=== PATIENT | female | born 1990 | race Caucasian/White ===

== ENCOUNTER → 2019-05-01 15:06 | Observation (INO) ==
[2019-05-01 13:31] LABS: Basophils % 0.2 %; Eosinophils # 0.2 K/mcL (0.0-0.6); Eosinophils % 2.2 %; Hematocrit 33.5 % (35.3-44.9); Hemoglobin 11.3 g/dL (11.5-15.4); Immature Granulocytes % 0.5 % (0-4); Lymphocytes # 2.4 K/mcL (0.6-4.6); Lymphocytes % 24.7 %; Mean Corpuscular HGB Conc 33.7 g/dL (31.6-35.5); Mean Corpuscular Hemoglobin 30.7 pg (28.0-33.3); Mean Platelet Volume 10.9 fL (9.4-12.4); Monocytes # 0.8 K/mcL (0.0-1.3); Monocytes % 8.2 %; Neutrophils # 6.2 K/mcL (1.6-8.9); Platelet Count 230 K/mcL (140-400); Red Blood Count 3.68 M/mcL (3.82-4.97); Red Cell Distribution Width 13.4 % (11.5-14.5); Segmented Neutrophils % 64.2 %; White Blood Count 9.7 K/mcL (4.3-11.1)
[2019-05-01 13:51] LABS: Alanine Aminotransferase 6 Units/L (7-52); Aspartate Amino Transferase 12 Units/L (13-39); BUN/Creatinine Ratio 16 (6-26); Blood Urea Nitrogen 8 mg/dL (6-20); Lactate Dehydrogenase 110 Units/L (140-271); Uric Acid 5.1 mg/dL (2.3-7.6); eGFR For African Americans > 60 (> 60); eGFR For Non-African Americans > 60 (> 60)
[2019-05-01 14:49] LABS: Protein/Creatinine Ratio,Urine 0.18 mg/mg (0.00-0.20)
== END | disposition home or self-care (01) ==
LOC: 1NENULAB
PROVIDERS: ADMIT Advanced Practice Midwife; ATTEND Advanced Practice Midwife

== ENCOUNTER → 2019-08-09 10:07 | Observation (INO) ==
[2019-08-09 09:50] LABS: Bilirubin,Urine Negative (Negative); Blood,Urine Negative (Negative); Clarity,Urine Clear (Clear); Color,Urine Light-Yellow (Yellow); Glucose,Urine (UA) Normal (Normal); Ketones,Urine Negative (Negative); Leukocyte Esterase,Urine Negative (Negative); Nitrite,Urine Negative (Negative); PH,Urine 7.5 pH Units (5.0-8.0); Protein,Urine Trace mg/dL (Neg-Trace); Specific Gravity,Urine 1.019 (1.010-1.025); Urobilinogen,Urine Normal (Normal)
== END | disposition home or self-care (01) ==
LOC: 1NENULAB
PROVIDERS: ADMIT Obstetrics & Gynecology; ATTEND Obstetrics & Gynecology

== ENCOUNTER 2019-08-28 03:00 | Inpatient (IN) ==
[2019-08-28] MEDS ORDERED: miSOPROStoL 25 MCG TABLET PO PRN (03:21)
[2019-08-28] MEDS ORDERED: Metoclopramide 10 MG/2 ML VIAL IVP PRN (03:21)
[2019-08-28] MEDS ORDERED: Famotidine 20 MG/2 ML VIAL IVP PRN (03:21)
[2019-08-28] MEDS ORDERED: Naloxone 0.4 MG/ML INJ IVP PRN (03:21)
[2019-08-28 03:56] LABS: Basophils % 0.4 %; Eosinophils # 0.2 K/mcL (0.0-0.6); Eosinophils % 1.8 %; Hematocrit 36.8 % (35.3-44.9); Hemoglobin 12.3 g/dL (11.5-15.4); Immature Granulocytes % 0.5 % (0-4); Lymphocytes # 2.9 K/mcL (0.6-4.6); Lymphocytes % 29.6 %; Mean Corpuscular HGB Conc 33.4 g/dL (31.6-35.5); Mean Corpuscular Hemoglobin 31.1 pg (28.0-33.3); Mean Corpuscular Volume 92.9 fL (83.0-100.0); Mean Platelet Volume 11.7 fL (9.4-12.4); Monocytes # 0.9 K/mcL (0.0-1.3); Monocytes % 8.7 %; Neutrophils # 5.9 K/mcL (1.6-8.9); Platelet Count 218 K/mcL (140-400); Red Blood Count 3.96 M/mcL (3.82-4.97); White Blood Count 9.9 K/mcL (4.3-11.1)
[2019-08-28 04:06] LABS: Amphetamine Screen,Urine Negative ng/mL (Cutoff=1000); Barbiturate Screen,Urine Negative ng/mL (Cutoff=200); Benzodiazepines Screen,Urine Negative ng/mL (Cutoff=200); Cannabinoid Screen,Urine Negative ng/mL (Cutoff = 50); Cocaine Screen,Urine Negative ng/mL (Cutoff= 300); Opiate Screen,Urine Negative ng/mL (Cutoff=300); Phencyclidine Screen,Urine Negative ng/mL (Cutoff=25)
[2019-08-28] MEDS ORDERED: Oxytocin 20 units/ LR 1000 mL 20 UNIT/1,000 ML BAG IVC SCH ×2 (04:15→22:03)
[2019-08-28] MEDS ORDERED: EPHEDrine 50 MG/ML VIAL IVP PRN ×2 (06:34→09:49)
[2019-08-28] MEDS ORDERED: Epidural Premix (fent/bupiv) 110 ML EP SCH (06:45)
[2019-08-28] MEDS ORDERED: Fluconazole 150 MG TABLET PO ONE (08:24)
[2019-08-28] MEDS ORDERED: *HR* FentaNYL (PF) 100 MCG/2 ML VIAL IVP PRN (08:52)
[2019-08-28] MEDS ORDERED: Ondansetron 4 MG/2 ML VIAL ONE (09:40)
[2019-08-28] MEDS ORDERED: Ondansetron 4 MG/2 ML VIAL IVP PRN (09:40)
[2019-08-28] MEDS: Ringers Solution, Lactated 1,000 ML IVC SCH ×2 (09:44→14:49)
[2019-08-28] MEDS ORDERED: *HR* FentaNYL (PF) 100 MCG/2 ML VIAL EP ONE (09:49)
[2019-08-28] MEDS ORDERED: Ropivacaine/PF 0.2% 20 ML VIAL EP ONE (09:49)
[2019-08-28] MEDS ORDERED: *HR* FentaNYL (PF) 100 MCG/2 ML VIAL ONE (09:55)
[2019-08-28] MEDS: Epidural Premix (fent/bupiv) 110 ML EP SCH ×2 (11:18→16:19)
[2019-08-28 12:20] LABS: Creatinine,Urine 155 mg/dL; Protein/Creatinine Ratio,Urine 0.23 mg/mg (0.00-0.20)
[2019-08-28 13:36] LABS: Alanine Aminotransferase 5 Units/L (7-52); Aspartate Amino Transferase 14 Units/L (13-39); BUN/Creatinine Ratio 24 (6-26); Blood Urea Nitrogen 9 mg/dL (6-20); Lactate Dehydrogenase 124 Units/L (140-271); Uric Acid 5.9 mg/dL (2.3-7.6); eGFR For African Americans > 60 (> 60); eGFR For Non-African Americans > 60 (> 60)
[2019-08-28] MEDS ORDERED: Lidocaine/EPI 1:200k 2% PF 20 ML VIAL ONE (17:58)
[2019-08-28] MEDS ORDERED: Bupivacaine-MPF 0.25% 10 ML VIAL ONE (18:22)
[2019-08-28] MEDS ORDERED: Benzocaine/Menthol 56 GM AEROSOL SPRAY TP PRN (22:03)
[2019-08-28] MEDS ORDERED: Lanolin 7 G OINT...G. TP PRN (22:03)
[2019-08-28] MEDS: Ibuprofen 600 MG TABLET PO PRN (22:16)
[2019-08-29] MEDS: Acetaminophen 325 MG TABLET PO PRN ×2 (03:28→20:15)
[2019-08-29 06:36] LABS: Basophils % 0.2 %; Eosinophils % 0.2 %; Hematocrit 33.2 % (35.3-44.9); Hemoglobin 11.1 g/dL (11.5-15.4); Immature Granulocytes % 0.7 % (0-4); Mean Corpuscular HGB Conc 33.4 g/dL (31.6-35.5); Mean Corpuscular Hemoglobin 31.9 pg (28.0-33.3); Mean Corpuscular Volume 95.4 fL (83.0-100.0); Mean Platelet Volume 11.7 fL (9.4-12.4); Monocytes # 1.3 K/mcL (0.0-1.3); Monocytes % 8.6 %; Neutrophils # 11.9 K/mcL (1.6-8.9); Platelet Count 177 K/mcL (140-400); Red Blood Count 3.48 M/mcL (3.82-4.97); Red Cell Distribution Width 14.1 % (11.5-14.5); Segmented Neutrophils % 77.3 %
[2019-08-29 06:37] LABS: White Blood Count 15.4 K/mcL (4.3-11.1)
[2019-08-29] MEDS: Prenatal Vit/FA 1 EACH TABLET PO SCH (08:59)
[2019-08-29] MEDS: Ibuprofen 600 MG TABLET PO PRN ×2 (08:59→18:02)
[2019-08-30 07:58] VITALS: BP 106/68
[2019-08-30] MEDS: Prenatal Vit/FA 1 EACH TABLET PO SCH (08:41)
[2019-08-30] MEDS: Acetaminophen 325 MG TABLET PO PRN (08:41)
== END 2019-08-30 13:20 | disposition home or self-care (01) | DRG 560 ==
LOC: 1NENULAB 03:19 → 1NENUOBS 23:25
PROVIDERS: ADMIT Student in an Organized Health Care Education/Training Program; ATTEND Student in an Organized Health Care Education/Training Program